=== PATIENT | female | born 1945 | race Caucasian/White ===

== ENCOUNTER 2017-08-15 08:31 | Emergency (ER) | payer MEDICARE, BC ==
--- NOTE | 2017-08-15 10:00 | UC ---
Back Pain HPI - HPI Summary HPI Summary: Patient presents with 2 days of left low back pain that radiates down her left leg. She is having a hard time walking due to the discomfort. Has a history of low back pain and sciatica pain. Tried an [id number] lidocaine patch with no improvement in symptoms. Pain kept her awake last night. She denies any saddle anesthesia or loss of bowel or bladder control. Is here visiting from [place]. Denies any trauma or injury. - History of Current Complaint Chief Complaint: UCBackPain Stated Complaint: BACK PAIN Time Seen by Provider: 08/15/17 09:04 Hx Obtained From: Patient Onset/Duration: Gradual Onset, Lasting Days, Still Present Timing: Constant Severity Initially: Moderate Severity Currently: Moderate Pain Intensity: 10 - STATES 10/10 BUT IN NO ACUTE DISTRESS Pain Scale Used: 0-10 Numeric Back Pain: Radiates To - DOWN LEFT LEG Character: Aching, Burning Aggravating Factor(s): Movement, Walking Alleviating Factor(s): Rest Associated Signs And Symptoms: Positive: Tingling, Pain with Weight Bearing. Negative: Swelling, Bladder Incontinence, Bowel Incontinence - Allergies/Home Medications Allergies/Adverse Reactions: Allergies Allergy/AdvReac Type Severity Reaction Status Date / Time amoxicillin Allergy Mild Unknown Verified 08/15/17 08:46 Reaction Details azithromycin Allergy Mild Unknown Verified 08/15/17 08:46 Reaction Details codeine Allergy Mild Unknown Verified 08/15/17 08:46 Reaction Details erythromycin base Allergy Mild Unknown Verified 08/15/17 08:46 [From Erythrocin] Reaction Details Sulfa (Sulfonamide Allergy Mild Unknown Verified 08/15/17 08:46 Antibiotics) Reaction Details Home Medications: Home Medications Amlodipine Besylate [Norvasc] 5 mg PO DAILY 08/15/17 [History Confirmed 08/15/17 ] Aspirin [Adult Aspirin Regimen] 81 mg PO DAILY 08/15/17 [History Confirmed 08/15] Diclofenac Sodium 50 mg PO DAILY 08/15/17 [History Confirmed 08/15/17] Losartan Potassium 100 mg PO DAILY 08/15/17 [History Confirmed 08/15/17] Lovastatin [Altoprev] 20 mg PO DAILY 08/15/17 [History Confirmed 08/15/17] Metformin HCl [Metformin HCl ER] 1 tab PO BID 08/15/17 [History Confirmed ] Metoprolol Tartrate 150 mg PO BID 08/15/17 [History Confirmed 08/15/17] Terazosin HCl 1 mg PO DAILY 08/15/17 [History Confirmed 08/15/17] aMILoride/HCTZ 5-50 MG TAB* [Moduretic 5-50 TAB*] 1 tab PO DAILY 08/15/17 [ History Confirmed 08/15/17] PMH/Surg Hx/FS Hx/Imm Hx Endocrine History: Diabetes Cardiovascular History: Hypertension - Surgical History Surgical History: None - Family History Known Family History: Positive: Hypertension - Social History Alcohol Use: Occasionally Substance Use Type: None Smoking Status (MU): Never Smoked Tobacco Review of Systems Constitutional: Negative Respiratory: Negative Cardiovascular: Negative Gastrointestinal: Negative Musculoskeletal: Myalgia Neurological: Paresthesia All Other Systems Reviewed And Are Negative: Yes Physical Exam Triage Information Reviewed: Yes Appearance: Well-Appearing, No Pain Distress, Well-Nourished Vital Signs: Initial Vital Signs Temp 97.8 F 08/15/17 08:54 Pulse 63 08/15/17 08:54 Resp 16 08/15/17 08:54 BP 157/77 08/15/17 08:54 Pulse Ox 93 08/15/17 08:54 Vital Signs Reviewed: Yes Eyes: Positive: Conjunctiva Clear ENT: Positive: Hearing grossly normal Neck: Positive: Supple Respiratory: Positive: No respiratory distress, No accessory muscle use Cardiovascular: Positive: Pulses Normal Abdomen Description: Positive: Soft Musculoskeletal: Positive: ROM Intact, No Edema Neurological: Positive: Alert, Muscle Tone Normal, Other: - NEGATIVE STRAIGHT LEG RAISE Psychological: Positive: Age Appropriate Behavior Skin: Negative: rashes Back Pain Course/Dx - Differential Dx/Diagnosis Provider Diagnoses: 1. ACUTE LOW BACK STRAIN. 2. LUMBAR RADICULOPATHY Discharge - Sign-Out/Discharge Documenting (check all that apply): Discharge/Admit/Transfer - Discharge Plan Condition: Stable Disposition: HOME Prescriptions: Cyclobenzaprine TAB* [Flexeril TAB*] 10 mg PO BID PRN #30 tab PRN Reason: Pain HYDROcodone/ACETAMIN 5-325 MG* [[place] 5-325 TAB*] 1 tab PO Q6H PRN #12 tab MDD 4 PRN Reason: Pain predniSONE TAB* [Deltasone TAB*] 40 mg PO DAILY #10 tab Patient Education Materials: Low Back Strain (ED), Lumbar Radiculopathy (ED) Referrals: No Primary Care Phys,NOPCP [Primary Care Provider] - Additional Instructions: TAKE THE MEDICINE PRESCRIBED TO HELP YOUR DISCOMFORT. BE SURE TO GO THROUGH SLOW RANGE OF MOTION AND STRETCHING EXERCISES DAILY YOU ARE ABLE TO PREVENT STIFFENING UP AND MAKING THE DISCOMFORT WORSE. GO TO THE ED WITHOUT FAIL IF YOU DEVELOP WORSENING PAIN, NUMBNESS IN THE GENITAL AREA, LOSS OF BOWEL OR BLADDER CONTROL OR ANY OTHER CONCERNING SYMPTOMS. FOLLOW-UP WITH YOUR PCP BACK HOME IN [place] IF NEEDED. - Billing Disposition and Condition Condition: STABLE Disposition: HOME
== END 2017-08-15 10:10 | disposition home or self-care (01) ==
LOC: UCEAST 08:31
DX: S39.012A Strain of muscle, fascia and tendon of lower back, initial encounter (principal); X58.XXXA Exposure to other specified factors, initial encounter; Y93.9 Activity, unspecified; Y92.9 Unspecified place or not applicable; M54.16 Radiculopathy, lumbar region; E11.9 Type 2 diabetes mellitus without complications; Z79.84 Long term (current) use of oral hypoglycemic drugs; I10 Essential (primary) hypertension; Z88.1 Allergy status to other antibiotic agents; Z88.5 Allergy status to narcotic agent; Z88.0 Allergy status to penicillin; Z88.2 Allergy status to sulfonamides
CPT/HCPCS: 99202; G0463

== ENCOUNTER 2024-03-09 02:28 | Inpatient (IN) ==
[2024-03-09 03:20] LABS: ABS Basophils 0.1 10^3/uL (0.0-0.1); ABS Lymphocytes 1.6 10^3/uL (1.0-4.8); ABS Monocytes 0.5 10^3/uL (0.0-0.9); ABS Nucleated RBC 0.01 10^3/ul; Hemoglobin 4.3 g/dL (11.5-14.3); Mean Corpuscular Hemoglobin 31.4 pg (27-33); Mean Corpuscular Hgb Conc 33.5 g/dL (31-36); Mean Corpuscular Volume 93.7 fL (80-97); Mean Platelet Volume 8.6 fL (7.5-11.2); Nucleated Red Blood Cells % 0.1 %/100WBC (0.0-0.8); Platelet Count 187 10^3/uL (150-450); Red Blood Count 1.39 10^6/uL (3.63-4.92); Red Cell Distribution Width 14.1 % (12-17); White Blood Count 13.2 10^3/uL (3.8-11.8)
[2024-03-09 04:17] LABS: Hematocrit 12.4 % (35-45); Hemoglobin 4.3 g/dL (11.5-14.3)
[2024-03-09 04:33] LABS: Albumin 3.2 g/dL (3.2-5.2); Albumin/Globulin Ratio 1.7 (1-3); Creatinine, Serum 1.11 mg/dL (0.51-0.95); Globulin 1.9 g/dL (2-4); Potassium 3.9 mmol/L (3.5-5.0); Total Bilirubin 0.3 mg/dL (0.2-1.0); Total Protein 5.1 g/dL (6.4-8.9); eGFR CKD-EPI 50.2 (>60)
[2024-03-09] MEDS: Pantoprazole VIAL 40 MG VIAL IV ONE (05:18)
[2024-03-09 05:38] LABS: Ferritin 18.7 ng/mL (11-307)
[2024-03-09] MEDS ORDERED: Dextrose 50% Syringe 50 ml 25 GM/50 ML SYRINGE IV PUSH PRN (05:45)
[2024-03-09] MEDS: Iodixanol 320 (CONTRAST) 100 ML SDV IV ONE (05:49)
[2024-03-09 09:33] LABS: Hematocrit 17.6 % (35-45); Hemoglobin 5.9 g/dL (11.5-14.3)
[2024-03-09] MEDS: Ferric Gluconate IV 250 MG in NS 0.9% 250 ml 200 ML IVPB SCH (14:30)
[2024-03-09 15:57] LABS: Hematocrit 20.8 % (35-45); Hemoglobin 7.3 g/dL (11.5-14.3)
[2024-03-09] MEDS: Pantoprazole 80 mg in NS BAG 80 MG/250 ML BAG IV SCH (19:15)
[2024-03-09] MEDS ORDERED: Pantoprazole VIAL 40 MG VIAL IV SCH (21:00)
[2024-03-10 05:00] LABS: ABS Basophils 0.1 10^3/uL (0.0-0.1); ABS Eosinophils 0.1 10^3/uL (0.0-0.5); ABS Lymphocytes 1.7 10^3/uL (1.0-4.8); ABS Monocytes 0.8 10^3/uL (0.0-0.9); ABS Neutrophils 7.7 10^3/uL (1.5-7.6); Eosinophil % 0.5 %; Hematocrit 21.3 % (35-45); Hemoglobin 7.7 g/dL (11.5-14.3); Lymphocyte % 16.2 %; Mean Corpuscular Hemoglobin 32.1 pg (27-33); Mean Corpuscular Hgb Conc 36.2 g/dL (31-36); Mean Corpuscular Volume 88.6 fL (80-97); Mean Platelet Volume 8.4 fL (7.5-11.2); Platelet Count 149 10^3/uL (150-450); Red Cell Distribution Width 15.1 % (12-17); White Blood Count 10.3 10^3/uL (3.8-11.8)
[2024-03-10 05:50] LABS: Calcium 9.3 mg/dL (8.6-10.3); Creatinine, Serum 0.81 mg/dL (0.51-0.95); eGFR CKD-EPI 73.3 (>60)
[2024-03-10 08:13] LABS: Magnesium 1.6 mg/dL (1.9-2.7)
[2024-03-10] MEDS: KCL 20 MEQ/100 ML IVPREMIX 20 MEQ/100 ML BAG IV SCH ×2 (08:19→18:59)
[2024-03-10] MEDS: Magnesium Sulf 4 GM/100 ML IV 4,000 MG/100 ML BAG IVPB ONE (12:32)
[2024-03-10] MEDS ORDERED: fentaNYL 100 mcg/2 ml 50 MCG/ML VIAL ONE (14:34)
[2024-03-10] MEDS ORDERED: Midazolam 5 mg/5 ml VIAL 1 mg/ml 5 ml VIAL (5 mg) ONE (14:34)
[2024-03-10] MEDS ORDERED: Flumazenil 0.5 mg/5 ml 0.1 MG/ML 5 ml VIAL IV PRN (22:40)
[2024-03-10] MEDS ORDERED: Naloxone 0.4 mg VIAL 0.4 mg/ml 1 ml VIAL IV PUSH PRN (22:40)
[2024-03-11] MEDS: fentaNYL 100 mcg/2 ml 50 MCG/ML VIAL IV SLOW PU ONE (00:21)
[2024-03-11] MEDS: Lidocaine 2% JELLY 6 ML Topical TOPICAL ONE (00:21)
[2024-03-11] MEDS: Lactated Ringers 1000 ml BAG 1,000 ML IV ONE (00:21)
[2024-03-11] MEDS: Ondansetron 4 mg VIAL 2 MG/ML 2 ml VIAL IV ONE (00:22)
[2024-03-11] MEDS: Midazolam 10 mg/10 ml VIAL 1 mg/ml 10 ml VIAL (10 mg) IV SLOW PU ONE (00:22)
[2024-03-11 05:59] LABS: Hematocrit 20.4 % (35-45); Hemoglobin 7.2 g/dL (11.5-14.3); Mean Corpuscular Hemoglobin 31.9 pg (27-33); Mean Corpuscular Hgb Conc 35.3 g/dL (31-36); Mean Corpuscular Volume 90.4 fL (80-97); Mean Platelet Volume 8.4 fL (7.5-11.2); Platelet Count 173 10^3/uL (150-450); Red Blood Count 2.25 10^6/uL (3.63-4.92); Red Cell Distribution Width 15.1 % (12-17); White Blood Count 8.1 10^3/uL (3.8-11.8)
[2024-03-11 06:29] LABS: Calcium 9.3 mg/dL (8.6-10.3); Creatinine, Serum 0.8 mg/dL (0.51-0.95); eGFR CKD-EPI 74.4 (>60)
[2024-03-11] MEDS: COVID VAC 24-25 (12+) (Moderna) Syringe 0.5 mL IM ONE (11:37)
[2024-03-11 12:45] LABS: Hemoglobin 8.1 g/dL (11.5-14.3)
[2024-03-11] MEDS: Ferric Gluconate IV 250 MG in NS 0.9% 250 ml 200 ML IVPB SCH (16:11)
[2024-03-12 08:59] VITALS: BP 134/48
== END 2024-03-12 14:39 | disposition home or self-care (01) | DRG 379 ==
LOC: ED 02:28 → EDHOLD 02:28 → MED 08:43
PROVIDERS: ADMIT Student in an Organized Health Care Education/Training Program; ATTEND Internal Medicine